=== PATIENT | female | born 1965 | race Caucasian/White ===

== ENCOUNTER 2019-01-18 15:11 | Emergency (ER) | payer OTHER, SELFPAY ==
[2019-01-18] MEDS ORDERED: Albuterol Sulfate 1.25 MG/3 ML NEB ONE (15:30)
[2019-01-18] MEDS ORDERED: predniSONE 20 MG TAB ONE (16:07)
[2019-01-18] MEDS ORDERED: AMOXicillin 250 MG CAP ONE (16:07)
--- NOTE | 2019-01-18 18:34 | RAD ---
PORTABLE CHEST 01/18/19 An AP portable film at 1538 shows a normal sized heart and clear lungs. No acute infiltrate or effusi on was seen. The mediastinum appears normal and the trachea is midline. IMPRESSION: No acute finding. POS: HOME
== END 2019-01-18 16:17 | disposition home or self-care (01) ==
LOC: BURERS 15:11
DX: J44.0 Chronic obstructive pulmonary disease with (acute) lower respiratory infection (principal); J20.9 Acute bronchitis, unspecified; F31.9 Bipolar disorder, unspecified
CPT/HCPCS: 71045; 87804; 94640; J7512; J7620